=== PATIENT | female | born 1990 | race African-American/Black ===

== ENCOUNTER → 2017-08-10 | Outpatient (CLI) | payer BC | LOC: SUN.DIA 12:57 | DX: E11.9 Type 2 diabetes mellitus without complications (principal); Z68.20 Body mass index [BMI] 20.0-20.9, adult; Z71.3 Dietary counseling and surveillance | CPT/HCPCS: G0108 ==

== ENCOUNTER → 2017-08-30 | Outpatient (CLI) | payer BC | LOC: SUN.DIA 12:00 | DX: E11.9 Type 2 diabetes mellitus without complications (principal); Z68.20 Body mass index [BMI] 20.0-20.9, adult; Z71.3 Dietary counseling and surveillance | CPT/HCPCS: G0108 ==